=== PATIENT | male | born 1960 | race Caucasian/White ===

== ENCOUNTER 2024-09-04 20:36 | Emergency (ER) | payer OTHER ==
[~2024-09-04] VITALS: Ht 180.3 cm; Wt 82.0 kg
[2024-09-04 21:27] VITALS: BP 139/89; TEMP 36.7; O2SAT 99
[2024-09-04 21:28] VITALS: PULSE 94; RESP 20; O2SAT 98
[2024-09-04] MEDS ORDERED: DEXTROSE 50% WATER 50ML SYRINGE IV ONE (22:00)
== END 2024-09-04 22:29 | disposition left against medical advice (07) ==
LOC: ER 20:47
DX: E16.1 Other hypoglycemia (principal); Z53.21 Procedure and treatment not carried out due to patient leaving prior to being seen by health care provider
CPT/HCPCS: 82962